=== PATIENT | male | born 1935 | race Caucasian/White ===

== ENCOUNTER 2022-03-10 14:19 | Outpatient (CLI) | payer OTHER, SELFPAY ==
[2022-03-10 14:42] VITALS: BP 116/57; PULSE 64; RESP 16; TEMP 36.3; O2SAT 97; BMI 22.6
[2022-03-10] MEDS: BEBTELOVIMAB 175 MG/2 ML VIAL IV (15:19)
[2022-03-10] MEDS: 0.9% Saline Lock 10 ML Syringe IV ×2 (15:19→15:21)
[2022-03-10 15:46] VITALS: BP 97/75; PULSE 64; RESP 16; TEMP 36.3; O2SAT 100
[2022-03-10 16:05] VITALS: BP 118/65; PULSE 64; RESP 16; TEMP 36.3; O2SAT 100
== END 2022-03-10 16:21 | disposition home or self-care (01) ==
LOC: MS3OUT 14:19 → MS2 14:20
PROVIDERS: PCP Internal Medicine; Referring Provider Nurse Practitioner Adult Health; Visit Provider Nurse Practitioner Adult Health
DX: U07.1 COVID-19 (principal)
CPT/HCPCS: M0222; Q0222; A4216